=== PATIENT | male | born 1950 | race Caucasian/White ===

== ENCOUNTER 2020-11-20 08:40 | Outpatient (CLI) | payer MEDICARE, SELFPAY ==
--- NOTE | 2020-11-20 | ECG_ITS ---
Measurements Intervals [place] Rate: 55 P: 51 MT: 177 QRS: -7 QRSD: 112 T: 60 QT: 416 QTc: 400 Interpretive Statements SINUS BRADYCARDIA INCOMPLETE LEFT BUNDLE BRANCH BLOCK CANNOT RULE OUT SEPTAL INFARCT, AGE INDETERMINATE BASELINE ARTIFACT- I, II, AVR ABNORMAL ECG Electronically Signed On 11-20-2020 9:37:42 SESSIONS CLERK by Rl Kelly D.O.
--- NOTE | ~2020-11-20 | XR_ITS ---
EXAMINATION: XR chest 2V EXAM DATE: 11/20/2020 09:22 INDICATION: Left shoulder osteoarthritis. Preoperative. TECHNIQUE: Frontal and lateral projections of the chest obtained and reviewed. There is no prior landon dy for comparison. FINDINGS: The lungs are clear. There are no pleural effusions. The cardiomediastinal silhouette is within normal limits. There is no pneumothorax suspected. Patient has diffuse idiopathic skeletal hyperostosis (DISH). There is severe left glenohumeral, moderate to severe right shoulder primary osteoarthritis. IMPRESSION: No acute cardiopulmonary findings. Reviewed, dictated and finalized at location B. STERED PHYSICAL THERAPIST
--- NOTE | ~2020-11-20 | CT_ITS ---
EXAMINATION: CT shoulder LT wo con DATE: 11/20/2020 09:14 INDICATION: Primary osteoarthritis, left shoulder. TECHNIQUE: Computed tomography (CT) of the left shoulder was performed without intravenous contrast. Automated exposure control and iterative reconstruction technique were employed. The dose-length prod uct was 552.95 mGy-cm. COMPARISON: Left shoulder radiographs 10/27/2020 FINDINGS: Bone alignment is normal. No fracture. There is advanced osteoarthritis of glenohumeral kay nt including bone volume loss of glenoid. There is severe osteoarthritis of acromioclavicular joint. There is a moderate-sized glenohumeral joint effusion with loose bodies. There is mild fatty atrophy of supraspinatus muscle belly. IMPRESSION: 1. Advanced osteoarthritis of glenohumeral joint including bone volume loss of glenoid. 2. Moderate-sized glenohumeral joint effusion with loose bodies. 3. Severe acromioclavicular joint osteoarthritis. Reviewed, dictated and finalized at location A. WORKING CRAFTSMAN
== END 2020-11-20 08:41 | disposition home or self-care (01) ==
PROVIDERS: PCP Pediatrics; Visit Provider Orthopaedic Surgery
DX: M19.012 Primary osteoarthritis, left shoulder (principal); M19.011 Primary osteoarthritis, right shoulder; I44.7 Left bundle-branch block, unspecified
CPT/HCPCS: 71046; 73200; 93005

== ENCOUNTER 2021-01-05 13:54 | Outpatient (CLI) | payer MEDICARE, SELFPAY ==
[2021-01-05 15:00] LABS: Basophils Percent Auto 0.5 % (0.2-1.2); Eosinophils Absolute Auto 0.1 K/mm3 (0-0.3); Eosinophils Percent Auto 1.1 % (0-4.4); Immature Granulocyte Absolute 0.02 K/mm3 (0.00-0.031); Immature Granulocyte Percent A 0.3 % (0-0.5); Lymphocytes Absolute Auto 2.75 K/mm3 (0.9-3.2); Lymphocytes Percent Auto 34.6 % (18.3-44.2); Mean Corpuscular HGB Conc 32.5 g/dl (32-36); Mean Corpuscular Hemoglobin 29.7 pg (26-34); Mean Corpuscular Volume 91.3 fl (80-100); Mean Platelet Volume 10.8 fl (7.4-10.4); Monocytes Absolute Auto 0.5 K/mm3 (0.1-0.6); Monocytes Percent Auto 5.7 % (2.6-8.5); Neutrophils Absolute Auto 4.6 K/mm3 (1.3-6.7); Neutrophils Percent Auto 57.8 % (45.5-73.1); Platelet Count Result 237 k/mm3 (150-375); Red Blood Count 4.38 M/mm3 (4.6-6.20); Red Cell Distribution Width 13.2 % (11.5-14.5); White Blood Count 7.9 K/mm3 (4.5-10.0)
[2021-01-05 15:13] LABS: Anion Gap 11 mmol/L (8-16); Blood Urea Nitrogen 25 mg/dL (9-20); Calcium 9.9 mg/dL (8.4-10.2); Carbon Dioxide 28 mmol/L (22-30); Chloride 103 mmol/L (98-107); Estimated Glomerular Filt Rate 55; Glucose 144 mg/dL (75-110); Potassium 4.8 mmol/L (3.4-5.0); Sodium 142 mmol/L (137-145)
== END 2021-01-05 13:55 | disposition home or self-care (01) ==
PROVIDERS: Anesthesiology; PCP Pediatrics; Visit Provider Orthopaedic Surgery
DX: Z01.818 Encounter for other preprocedural examination (principal); M25.512 Pain in left shoulder; E11.9 Type 2 diabetes mellitus without complications
CPT/HCPCS: 36415; 80048; 85025; 86850; 86900; 86901; 87081

== ENCOUNTER → 2021-01-10 00:35 | Outpatient (CLI) | payer MEDICARE, SELFPAY ==
[2021-01-10 19:48] LABS: SARS-CoV-2 RNA PCR Negative
== END ==
PROVIDERS: PCP Pediatrics; Visit Provider Orthopaedic Surgery
DX: Z01.812 Encounter for preprocedural laboratory examination (principal); Z20.822 Contact with and (suspected) exposure to COVID-19
CPT/HCPCS: C9803; U0003; U0005

== ENCOUNTER 2021-01-14 14:30 | Observation (INO) | payer MEDICARE, SELFPAY ==
[2021-01-05 14:15] VITALS: BP 140/76; PULSE 64; RESP 20; TEMP 37; O2SAT 100; BMI 30.9
[2021-01-13] VITALS (12 sets, daily range): BP systolic 98–126; BP diastolic 54–79; PULSE 57–72; RESP 12–18; TEMP 35.9–36.7; O2SAT 96–100; BMI 30.2
--- NOTE | 2021-01-13 07:02 | P.PNAN_ITS ---
Anes - Initial Pre Proc Eval Procedure: Operation Date: 01/13/21 08:30 Proposed Procedures p Left Reverse Total Shoulder Arthroplasty - Myron Hernandez MD Date/Time: 01/13/21 07:02 Surgeon: Myron Hernandez MD Pre Op Diagnosis: primary OA left shoulder Patient Data Age: 70 Gender: M Height: 1.8 m Weight: 98.2 kg Last Vital Signs Temp 36.4 C L 01/13/21 06:44 Pulse 57 L 01/13/21 06:44 Resp 18 01/13/21 06:44 BP 125/79 01/13/21 06:44 Pulse Ox 100 01/13/21 06:44 Allergies Allergy/AdvReac Type Severity Reaction Status Date / Time No Known Allergies Allergy Verified 01/13/21 06:35 Home Medications Medication Instructions Recorded Confirmed Type atenolol 50 mg tablet 50 mg PO QAM 09/25/20 01/13/21 History atorvastatin 40 mg tablet 40 mg PO QAM 09/25/20 01/13/21 History metformin 1,000 mg tablet,extended 1,000 mg PO BID 09/25/20 01/13/21 History release 24hr omega 1-hse-ykv-fish oil [Fish Oil] 1 cap PO DAILY 01/05/21 01/13/21 History ECG: Date of Service: 11/20/20 Procedure(s): CA 12 lead EKG Accession Number(s): [id number] cc: ~ Measurements Intervals [place] Rate: 55 P: 51 OK: 177 QRS: -7 QRSD: 112 T: 60 QT: 416 QTc: 400 Interpretive Statements SINUS BRADYCARDIA INCOMPLETE LEFT BUNDLE BRANCH BLOCK CANNOT RULE OUT SEPTAL INFARCT, AGE INDETERMINATE BASELINE ARTIFACT- I, II, AVR ABNORMAL ECG Electronically Signed On 11-20-2020 9:37:42 ASSOCIATE SOFTWARE DEVELOPMENT ENGINEER by Rl Kelly D.O. Dictated By: Rl Kelly DO 11/20/20 0930 Patient hx anesthesia problems: none Family hx anesthesia problems: none PMFSH Past Medical History Medical History (Updated 01/13/21 @ 07:03 by Jeremi Thao MD) Diabetes Hypercholesterolemia Hypertension Obesity Surgical History Surgical History H/O left nephrectomy History of left knee replacement History of right knee joint replacement Social History Social History Smoking status: Never smoker Second hand tobacco smoke exposure: No Alcohol intake: never Substance use: never Substance use type: does not use Living arrangements: with family Spiritual care concerns: No Anes - Eval Final PreProcedure Day of Procedure 01/13/21 07:02 Patient weight: obese Heart: regular rate and rhythm Lungs: clear to auscultation and normal air movement Airway: Mallampati scale class II Neurological: alert and oriented Last oral intake: >/= 8 hours ASA classification: III Emergent: no Anesthetic plan: proceed Anesthesia type and monitoring: general LMA and ETT Informed Consent: The patient's anesthetic plan and its attendant risks and benefits were discussed with the patient/family/POA. Questions were solicited and answers provided to the satisfaction of the patient/family/POA.
--- NOTE | 2021-01-13 07:06 | WPDANESPNB ---
Anes - Peripheral Nerve Block Date/Time: 01/13/21 07:06 I have discussed with the patient/family/POA the placement of a peripheral nerve block for post-operative pain management, including associated risks, benefits, complications, and side effects. Alternative methods of post-operative analgesia were detailed. Questions were solicited and answers provided to the satisfaction of the patient/family/POA. Time-Out: A pre-procedural Time-Out was completed immediately before starting the procedure and confirmed: Patient Identification, Site, Procedure, Patient Position and the Availability of Requisite Equipment. Clinical Indications: Acute post-operative pain management requested by the operative surgeon. Nerve Block Insertion Note Anes-nerve block: supraclavicular left Patient position: supine Skin prep: chlorhexidine Needle: 22 gauge, stimulating, insulated echogenic needle. Needle length: 80 mm Technique: ultrasound (in plane) Injectate: bupivacaine 0.5% with epi 5 mcg/ml (20cc) Observations: tolerated well Complications: none Procedure start time:: 815 Procedure end time:: 820
--- NOTE | 2021-01-13 07:23 | WPDHPUPDATE1 ---
History and Physical Update Update Date/Time: 01/13/21 07:23 History and Physical has been reviewed, including an updated exam of the patient. There are NO changes in the patient's condition. Risks, benefits, and alternatives have been discussed and questions answered. Patient agrees to proceed with procedure.
[2021-01-13] MEDS: TRANEXAMIC ACID 1,000MG/ISO100 1,000 MG/100 ML BAG 200 MG IVPB (07:33)
[2021-01-13] MEDS: ACETAMINOPHEN 500 MG TABLET 1000 MG PO (07:33)
[2021-01-13] MEDS: LACTATED RINGERS 1,000 ML 30 ML IV CONT ×2 (07:33→11:16)
[2021-01-13 07:42] LABS: Glucose Point of Care 104 (65-105)
--- NOTE | 2021-01-13 08:03 | SUR.PREOP ---
0715; DR PRUITT HERE SPEAKING TO PT AND SPOUSE. ASKED HIM IF PT CAN LEAVE SPLINT ON LT [address]TH [address] DR PRUITT STATES YES
[2021-01-13] MEDS: ceFAZolin 2 GM/D5W 50 ML 2 GM/50 ML BAG IVPB (08:24)
--- NOTE | 2021-01-13 10:58 | PM.PROC ---
Procedure Note - Detailed Date of procedure: 01/13/21 Pre-op diagnosis: primary OA left shoulder Post-op diagnosis: same Procedure performed: Reverse total shoulder arthroplasty. Biceps tenodesis. Description of procedure: Severely contracted and stiff shoulder, in large part due to extensive osteophytes, both on the glenoid and humerus. These were removed. Bone quality was excellent. Posterior capsule release was required. Reaming of the inferior and anterior inferior aspect of the glenoid primarily according to preoperative templating. Excellent range of motion and stability with the 10 degree lateral offset 42 mm glenoid sphere. Reduction was tight and the humerus was thus placed at the 6 o'clock position to facilitate reduction. Humerus placed at 10? retroversion. Implants: Tornier Aequalis reversed II glenoid base plate 29mm, reversed insert 6mm thickness; Aequalis Ascend Flex humeral stem size 4B. Aequalis Reversed II glenoid sphere 42 diameter; Reversed tray low offset. Anesthesia: GETA and regional Surgeon: Myron Hernandez MD Cane Loader: Zuleika Casillas PA-C Estimated blood loss (mL): 200 Drains: No Complications: None Condition: stable Disposition: PACU Findings: Physician business support assistant, Zuleika Casillas PA-C, required for surgery; including patient positioning, draping, arthroscopic camera operation, maintaining instrument position, wound closure, and dressing and sling placement. OPERATIVE DETAILS: The patient was given an interscalene block in the preoperative area. Preoperative antibiotics were given. The patient was transferred to the operating room and a general anesthetic was administered. The beach chair position was used at 45 degrees. All bony prominences were padded. The head was carefully stabilized on the McConnel head kiln operator. A sterile prep and drape was performed in the usual manner with ChloraPrep. A longitudinal incision was created at the anterior shoulder just lateral to the deltopectoral interval. Careful dissection was performed to expose the interval and protect the cephalic vein. The vein was retracted medially. The upper border of the pectoralis was released. Anterior circumflex vessel branches were suture ligated. The biceps was tenotomized and later tenodesed. A subscapularis tenotomy was performed. The inferior capsule was released, exposing the humeral head. Osteophytes were removed. Care was taken to stay on bone to protect the axillary nerve. The anatomic head cut was taken with the oscillating saw. Sounding and broaching was performed. The neck anteversion and inclination were carefully assessed. The cut protector was placed, and attention was turned to the glenoid. Retractors were placed. Releases were carried out for exposure. The subscapularis was mobilized, the inferior capsule and long head of triceps released, and the superior and middle glenohumeral ligaments released as well. Labral tissue was resected as needed. The sizing template was used to assess the baseplate position low on the glenoid. A guide pin was placed. Minimal reaming was used to accomplish a flat surface without violating the subchondral bone. Version was corrected according to preoperative templating. The central post hole was drilled. The real component was impacted into position. Supplemental locking screws were placed superiorly and inferiorly. The glenosphere was impacted into the taper, and secured with the locking screw. The humeral components were trialed. The real humeral stem and tray, and insert were impacted into position. The shoulder was copiously irrigated periodically with pulsatile lavage. The shoulder was reduced and stability confirmed. The biceps tenodesis was incorporated with the pectoralis tendon repair. The deltopectoral space was reapproximated with number 2 Vicryl. The remained tissue was closed with 0 Quill and 2-0 Quill running suture and steri-strips. A sterile dressing and shoulder immobilizer was placed. The patient was tra
[2021-01-13 11:40] LABS: Glucose Point of Care 138 (65-105)
--- NOTE | 2021-01-13 13:00 | ADMGEN ---
This patient, Prince Garcia, was admitted to Medical Room 240-01. Patient/family oriented to hospital policies and general routines including ID bracelet, bed and alarms, visiting hours, pain management, procedures, bathroom and other care routines, personal items, smoking policy, room service/diet, and visiting hours. Information on how to activate the Rapid Response Team has been discussed. Patient/Family are encouraged to report perceived risks to care and to ask questions if they do not understand what they are told or what they should do.
[2021-01-13 13:51] LABS: Glucose Point of Care 134 (65-105)
[2021-01-13] MEDS: KETOROLAC 15 MG/ML VIAL (*BKC) IV PUSH ×3 (14:43→23:57)
[2021-01-13 16:10] LABS: Glucose Point of Care 222 (65-105)
[2021-01-13] MEDS: DOCUSATE SODIUM 100 MG CAPSULE PO (16:13)
[2021-01-13] MEDS: metFORMIN HCL 500 MG TABLET 1000 MG PO (16:13)
[2021-01-13] MEDS: ASPIRIN 81 MG ENTERIC TABLET PO (16:13)
[2021-01-13 21:02] LABS: Glucose Point of Care 172 (65-105)
[2021-01-14] VITALS (9 sets, daily range): BP systolic 96–124; BP diastolic 53–66; PULSE 53–88; RESP 12–18; TEMP 36–36.8; O2SAT 95–100
--- NOTE | ~2021-01-14 | XR_ITS ---
EXAMINATION: XR shoulder LT min 2V DATE: 01/13/2021 11:36 INDICATION: Left shoulder arthroplasty. Postop. TECHNIQUE: 2 views of left shoulder were obtained. COMPARISON: Left shoulder radiographs 10/27/2020 FINDINGS: There is a reverse cxjj-jmg-lycpje total left shoulder arthroplasty in near-anatomic alignm ent. No fracture. There is moderate osteoarthritis of glenohumeral joint. There is gas in the soft ti ssues, consistent with recent surgery. IMPRESSION: 1. Total left shoulder arthroplasty in near-anatomic alignment. Reviewed, dictated and finalized at location A. OVISUAL EQUIPMENT OPERATOR
[2021-01-14] MEDS: KETOROLAC 15 MG/ML VIAL (*BKC) IV PUSH ×2 (05:10→11:35)
[2021-01-14 07:34] LABS: Glucose Point of Care 118 (65-105)
--- NOTE | 2021-01-14 07:58 | WPDANESPN ---
Anes - Prog Note Post-Op Date/Time: 01/14/21 07:58 Cardiovascular status: normal Respiratory status: normal Airway patency: baseline Mental status: baseline Post-Op hydration status: normal Vital Signs: Last Vital Signs Temp 36.7 C 01/14/21 04:29 Pulse 88 01/14/21 04:29 Resp 16 01/14/21 04:29 BP 96/55 L 01/14/21 04:29 Pulse Ox 97 01/14/21 04:29 Pain Score (VAS): 0/10 I/O: Intake & Output 01/13/21 01/13/21 01/14/21 15:59 23:59 07:59 Intake Total 650 1140 450 Output Total 900 820 Balance 650 240 -370 01/13/21 01/13/21 01/13/21 11:34 13:49 16:07 POC Capillary Glucose 138 H 134 H 222 H 01/13/21 01/14/21 20:58 07:31 POC Capillary Glucose 172 H 118 H Post-procedural complaints: none Patient Feedback: Patient satisfied with anesthetic care. Other Findings: Pt with excellent Pain relief from nerve block
[2021-01-14] MEDS: metFORMIN HCL 500 MG TABLET 1000 MG PO ×2 (08:07→16:18)
[2021-01-14] MEDS: DOCUSATE SODIUM 100 MG CAPSULE PO ×2 (08:07→16:18)
[2021-01-14] MEDS: ASPIRIN 81 MG ENTERIC TABLET PO ×2 (08:07→16:18)
[2021-01-14] MEDS: atenoloL 50 MG TABLET PO (08:08)
[2021-01-14] MEDS: ATORVASTATIN 40 MG TABLET PO (08:11)
[2021-01-14 11:59] LABS: Glucose Point of Care 127 (65-105)
[2021-01-14] MEDS: TAMSULOSIN HCL 0.4 MG CAPSULE PO (15:22)
--- NOTE | 2021-01-14 15:28 | PC.NURSE ---
On 01/14/21, the student, [Elizabeth Hicks ], provided care and completed [facility] documentation on this patient. I have reviewed the student's documentation and agree with the findings.
--- NOTE | 2021-01-14 16:54 | PM.PNORT ---
Progress Note: A&P Assessment and Plan (1) Status post reverse total arthroplasty of left shoulder: Code(s): Z96.612 - Presence of left artificial shoulder joint Status: Acute Assessment and Plan: Postoperative day 1: Left reverse total shoulder arthroplasty. Patient progressing well. Pain controlled with pain medication. Patient working well with physical therapy. No numbness or tingling in his fingers. Patient will need to have urinated on his own prior to discharge home. Subjective Subjective Date/Time Seen: 01/14/21 09:00 Postoperative day 1: Reverse total shoulder arthroplasty. Physical therapy with patient at the time my visit. Patient was resting comfortably in bed. No pain in the shoulder. Patient denied chest pain, shortness of breath, abdominal pain. Patient states he has not been able to urinate since surgery. He had been cathed twice. No numbness or tingling in his fingers. Review of Systems Review of Systems: All systems reviewed & are unremarkable except as noted in HPI and below Exam Narrative: Exam Narrative: Normal weight 70-year-old male. No acute distress. Alert and oriented x3. Dressing dry and intact with no drainage. Moderate swelling and ecchymosis at biceps. Light touch sensation intact. Distal pulses palpable. Objective Data Vital Signs Vital Signs: Vital Signs - 24 hr 01/13/21 18:13 01/13/21 19:44 01/14/21 01:52 Temperature 96.9 F L 97.7 F 97.8 F Pulse Rate 58 L 57 L 57 L Respiratory Rate 16 16 14 Blood Pressure 98/57 L 98/54 L 98/58 L Pulse Oximetry 100 98 97 01/14/21 04:29 01/14/21 08:00 01/14/21 08:08 Temperature 98.1 F 96.8 F L Pulse Rate 88 53 L 53 L Respiratory Rate 16 12 Blood Pressure 96/55 L 98/53 L Pulse Oximetry 97 100 01/14/21 09:28 01/14/21 10:00 01/14/21 14:00 Temperature 97.4 F L 97.6 F Pulse Rate 54 L 69 Respiratory Rate 12 16 Blood Pressure 97/58 L 115/61 Pulse Oximetry 95 99 100 Intake/Output Intake/Output: Intake & Output 01/11/21 01/12/21 01/13/21 01/14/21 23:59 23:59 23:59 23:59 Intake Total 1790 980 Output Total 900 1270 Balance 890 -290 Meds/Results Medications: Active Medications Generic Name Dose Route Start Last Admin Trade Name Freq PRN Reason Stop Dose Admin Aspirin 81 mg 01/13/21 17:00 01/14/21 16:18 Aspirin 81 Mg Enteric Tablet PO 81 mg BID [facility] Administration Atenolol 50 mg 01/14/21 09:00 01/14/21 08:08 A[facility]ol 50 Mg [facility] Atorvastatin Calcium 40 mg 01/14/21 09:00 01/14/21 08:11 Atorvastatin 40 Mg Tablet [facility] [place] Cyclobenzaprine HCl 10 mg 01/13/21 12:28 Cyclobenzaprine Hcl 10 Mg Tablet PO Q8H PRN Muscle Spasm Docusate Sodium 100 mg 01/13/21 17:00 01/14/21 16:18 Docusate Sodium 100 Mg Capsule PO 100 mg BID [facility] Administration Magnesium Hydroxide 30 ml 01/13/21 12:28 Magnesium Hydroxide Susp 30 Ml Udc PO BID PRN Constipation Metformin HCl 1,000 mg 01/13/21 17:00 01/14/21 16:18 Metformin Hcl 500 Mg Tablet PO 1,000 mg BIDWM [facility] Administration Ondansetron HCl 4 mg 01/13/21 12:28 Ondansetron Inj 4 Mg/2 Ml Vial IV PUSH Q4H PRN Nausea And Vomiting Oxycodone HCl 5 mg 01/13/21 12:28 Oxycodone Hcl (*Crx) 5 Mg Tab Ir PO Q4H PRN Pain Rated 4-6 Oxycodone HCl 10 mg 01/13/21 12:28 Oxycodone Hcl (*Crx) 5 Mg Tab Ir PO Q4H PRN Pain Rated 7-10 Tamsulosin HCl 0.4 mg 01/15/21 09:00 Tamsulosin Hcl 0.4 Mg [facility]apsule [facility] [place] Results: ITS Impressions Shoulder X-Ray 01/13/21 12:00 IMPRESSION: 1. Total left shoulder arthroplasty in near-anatomic alignment. Labs Labs: Laboratory Results - last 24 hr 01/13/21 01/14/21 01/14/21 20:58 07:31 11:34 POC Capillary Glucose 172 H 118 H 127 H
[2021-01-15 00:06] VITALS: BP 114/70; PULSE 73; RESP 18; TEMP 36.7; O2SAT 100
[2021-01-15 04:47] VITALS: BP 130/65; PULSE 77; RESP 18; TEMP 36.4; O2SAT 97
[2021-01-15 08:00] VITALS: BP 152/68; PULSE 74; RESP 18; TEMP 36.6; O2SAT 94
[2021-01-15] MEDS: metFORMIN HCL 500 MG TABLET 1000 MG PO (08:01)
[2021-01-15] MEDS: TAMSULOSIN HCL 0.4 MG CAPSULE PO (08:01)
[2021-01-15] MEDS: ASPIRIN 81 MG ENTERIC TABLET PO (08:01)
[2021-01-15] MEDS: ATORVASTATIN 40 MG TABLET PO (08:01)
[2021-01-15 08:02] VITALS: PULSE 77
[2021-01-15] MEDS: atenoloL 50 MG TABLET PO (08:02)
[2021-01-15 08:18] LABS: Glucose Point of Care 123 (65-105)
[2021-01-15 12:00] VITALS: BP 134/66; PULSE 76; RESP 18; TEMP 36.6; O2SAT 99
[2021-01-15 12:03] LABS: Glucose Point of Care 114 (65-105)
--- NOTE | 2021-01-15 16:00 | PM.DS ---
DS: Admitting Diagnosis Admitting Diagnosis Admitting Diagnosis: OA Left glenohumeral joint DS: Discharge Diagnosis Discharge Diagnosis (1) Status post reverse total arthroplasty of left shoulder: Code(s): Z96.612 - Presence of left artificial shoulder joint Status: Acute Assessment and Plan: Postoperative day 2: Left reverse total shoulder arthroplasty. Patient progressing well. Pain controlled with pain medication. Patient working well with physical therapy. No numbness or tingling in his fingers. Follow up appointments already made. Patient did have trouble urinating post operatively. He was straight catheterized twice and had a Byrd catheter in over night. Prior to discharge patient was able to urinate on his own. I recommend he take flowmax and follow up with urology in 1 week. DS: Summary Hospital Course Reason for hospitalization: Total knee arthroplasty Hospital Course: Patient tolerated procedure well. Has had initial PT/OT. Patient did have trouble urinating and was cathed multiple times. Prior to discharge pateint was able to void on his own. Status at Discharge Functional status at discharge: uses cane/walker Overall status at discharge: patient is progressing back to baseline Time Spent with Patient Time attestation: Total time spent providing and/or coordinating discharge services: Exam Narrative: Exam Narrative: Normal weight Male. Resting comfortably in bed. Wearing sling. Wearing compression socks bilaterally. Dressing dry and intact with no drainage. Moderate swelling. Moderate ecchymosis. No erythema. No hematoma. Range of motion limited due to pain. Calf nontender. Neurologic status intact. No varicosities. Distal pulses palpable. DS: Data Data Completed and Pending Labs on day of discharge: Labs from last 24 hours 01/15/21 01/15/21 11:49 07:52 POC Capillary Glucose 114 H 123 H Discharge Plan Discharge Attending physician on discharge: Myron Hernandez Discharging Clinician: Zuleika Casillas Patient Disposition: Home, Self-Care Activity: may shower and other - see discharge instructions Diet: regular Wound Care Instructions: follow printed instructions Discharge Instructions: Follow up with Urology in 1 week phone number: [phone] See instruction sheet: Dressing off in 7 days post op. Steri strips off at 14 days post op. No soaking in water. Showering okay. Wear sling, no driving until follow up visit. Patient Instructions: Cefazolin (By injection), Urinary Retention in Men (GEN), Pain Management (DC), Weakness (DC), Joint Replacement Surgery (DC), Shoulder Arthroplasty (GEN) Follow-up/Referrals: Zuleika Casillas PA [Physician Button Sewer] - Discharge Medications: New aspirin 81 mg tablet,delayed release (DR/EC) 81 mg PO BID 14 Days Qty: 28 RF: 0 oxycodone-acetaminophen 5-325 mg tablet 1 - 2 tablet PO Q4-6H MDD 6 PRN (Reason: pain) Qty: 30 RF: 0 ondansetron HCl [Zofran] 4 mg tablet 4 mg PO Q8H Qty: 20 RF: 0 tamsulosin 0.4 mg capsule 0.4 mg PO QAM 14 Days Qty: 14 RF: 0 Continued atorvastatin 40 mg tablet 40 mg PO QAM RF: 0 atenolol 50 mg tablet 50 mg PO QAM RF: 0 omega 5-nce-lcy-fish oil [Fish Oil] 1,000 mg (120 mg-180 mg) Capsule 1 cap PO DAILY RF: 0 metformin 1,000 mg tablet 1,000 mg PO BID RF: 0 Date of admission: 01/14/21 14:30 Primary Care Provider: Lorie,Remy Wright Admitting Provider: Myron Hernandez Attending physician on admission: Myron Hernandez Condition: Stable
== END 2021-01-15 16:53 | disposition home or self-care (01) ==
LOC: ANHSURGERY 14:33 → ANH2MED 14:33
PROVIDERS: Admitting Provider Orthopaedic Surgery; PCP Pediatrics; Visit Provider Orthopaedic Surgery
PROC: (CPT 23472; principal; 2021-01-13 08:30)
DX: M19.012 Primary osteoarthritis, left shoulder (principal); M25.712 Osteophyte, left shoulder; M62.412 Contracture of muscle, left shoulder; G89.18 Other acute postprocedural pain; E11.9 Type 2 diabetes mellitus without complications; I10 Essential (primary) hypertension; E78.00 Pure hypercholesterolemia, unspecified; R39.198 Other difficulties with micturition; Z96.653 Presence of artificial knee joint, bilateral
CPT/HCPCS: 23472; 64415; 73030; 82948; 97110; 97116; 97161; 97165; 97530; 97535; A4565; A9270; C1776; G0378; J0131; J0171; J0330; J0690; J1100; J1885; J2250; J2270; J2405; J2704; J2710; J2795; J3010; J7120

== ENCOUNTER 2021-08-03 12:28 | Outpatient (CLI) | payer MEDICARE, SELFPAY ==
--- NOTE | ~2021-08-03 | CT_ITS ---
EXAMINATION: CT shoulder RT wo con DATE: 08/03/2021 13:11 INDICATION: Primary osteoarthritis of the right shoulder TECHNIQUE: High resolution computed tomography (CT) of the right shoulder was performed without intra venous contrast. Additional sagittal and coronal reconstructions were performed. Automated exposure c ontrol and iterative reconstruction technique were employed. The dose-length product was 584.80 mGy-c m. COMPARISON: None FINDINGS: Severe osteoarthritis at the right glenohumeral joint. There is remodeling of the glenoid with loss o f posterior bone stock resulting in approximately 13 degree acetabular retroversion. There is also mi ld remodeling along the humeral head along with formation of a large inferior humeral osteophyte. Sca ttered mild subarticular cystic changes along the humeral head as well as along the glenoid with ante rior predominance where there are also small anterior glenoid marginal osteophytes. Severe acromiocla vicular osteoarthritis also with hypertrophic osteophytes and subarticular cystic changes. No fractur e. Small heterotopic ossicle at the distal aspect of the supraspinatus tendon. Small glenohumeral joint effusion with large amount of fluid in the subacromial/subdeltoid bursa which could be due to either possible full-thickness rotator cuff tear/perforation or subacromial/subdeltoid bursitis. There are s everal loose osteochondral bodies along the long head biceps tendon sheath. There appears to be heter otopic ossification at the long head biceps tendon at the cephalad aspect of the intertubercular groo ve where there is suggestion of an anchor site for a possible biceps tenodesis. Correlate with surgic al history. There appears to be some atrophy with concave peripheral margins of the supraspinatus and infraspinatus tendons with relatively symmetric fatty atrophy compared with the subscapularis muscle . There is respiratory motion throughout the right lung limiting assessment of fine pulmonary parench ymal detail. No evident pneumonia, pulmonary edema, pleural effusion or pneumothorax. IMPRESSION: 1. Severe right glenohumeral and acromio clavicular osteoarthritis. 2. Moderate amount of fluid in the subacromial/subdeltoid bursa which could be due to either bursitis or medication with the glenohumeral joint space by a full-thickness rotator cuff tear/perforation. 3. Suggestion of possible bicipital tenodesis. 4. Mild supraspinatus and infraspinatus muscular atrophy. Reviewed, dictated and finalized at location A. IMPRESSION: 1. Severe right glenohumeral and acromio clavicular osteoarthritis. 2. Moderate amount of fluid in the subacromial/subdeltoid bursa which could be due to either bursitis or medication with the glenohumeral joint space by a ful l-thickness rotator cuff tear/perforation. 3. Suggestion of possible bicipital tenodesis. 4. Mild supraspinatus and infraspinatus muscular atrophy.
== END 2021-08-03 12:29 | disposition home or self-care (01) ==
LOC: ANHIMG 12:35
PROVIDERS: PCP Pediatrics; Visit Provider Orthopaedic Surgery
DX: M19.011 Primary osteoarthritis, right shoulder (principal)
CPT/HCPCS: 73200

== ENCOUNTER 2021-10-08 12:01 | Outpatient (CLI) | payer MEDICARE, SELFPAY ==
[2021-10-08 12:51] LABS: Basophils Absolute Auto 0.1 K/mm3 (0.0-0.1); Basophils Percent Auto 0.7 % (0.2-1.2); Eosinophils Absolute Auto 0.1 K/mm3 (0-0.3); Hematocrit 38.5 % (42.0-52.0); Hemoglobin 12.2 g/dL (14.0-18.0); Immature Granulocyte Absolute 0.03 K/mm3 (0.00-0.031); Immature Granulocyte Percent A 0.4 % (0-0.5); Lymphocytes Percent Auto 36.5 % (18.3-44.2); Mean Corpuscular HGB Conc 31.7 g/dl (32-36); Mean Corpuscular Hemoglobin 30.3 pg (26-34); Mean Corpuscular Volume 95.5 fl (80-100); Mean Platelet Volume 10.7 fl (7.4-10.4); Monocytes Absolute Auto 0.6 K/mm3 (0.1-0.6); Monocytes Percent Auto 8.2 % (2.6-8.5); Neutrophils Absolute Auto 3.6 K/mm3 (1.3-6.7); Neutrophils Percent Auto 53.2 % (45.5-73.1); Platelet Count Result 189 k/mm3 (150-375); Red Blood Count 4.03 M/mm3 (4.6-6.20); Red Cell Distribution Width 13.7 % (11.5-14.5); White Blood Count 6.9 K/mm3 (4.5-10.0)
[2021-10-08 13:06] LABS: Anion Gap 9 mmol/L (8-16); Blood Urea Nitrogen 25 mg/dL (9-20); Calcium 9.7 mg/dL (8.4-10.2); Carbon Dioxide 26 mmol/L (22-30); Chloride 101 mmol/L (98-107); Estimated Glomerular Filt Rate 55; Glucose 120 mg/dL (65-110); Potassium 4.9 mmol/L (3.4-5.0); Sodium 136 mmol/L (137-145)
== END 2021-10-08 12:02 | disposition home or self-care (01) ==
PROVIDERS: Anesthesiology; PCP Pediatrics; Visit Provider Orthopaedic Surgery
DX: M19.011 Primary osteoarthritis, right shoulder (principal); E11.9 Type 2 diabetes mellitus without complications; Z01.818 Encounter for other preprocedural examination
CPT/HCPCS: 36415; 80048; 85025; 87081

== ENCOUNTER 2021-11-05 00:35 | Day surgery (SDC) | payer MEDICARE, SELFPAY ==
--- NOTE | 2021-10-08 12:00 | PC.NURSE ---
Report to the Outpatient Waiting Room, entrance under the green pavilion located off [facility], at time _0600_ on date _11/05/21_. OR Time: _0730 AM_. - You and your visitor will be asked a series of questions to screen for COVID 19 for your protection. - A mask is required within the hospital. - Only one visitor is allowed at this time. Patient visitors will be guided where to wait when not with patient. Preoperative COVID Testing Requirements: No COVID Test needed if: (proof is required; if not received patient will have Rapid Test prior to entry) - Patient has received COVID Vaccine at least 14 days prior to procedure date or - Patient has positive COVID test result within last 90 days of surgery date. COVID Test needed if above criteria is not met If not COVID vaccinated a COVID test must be conducted within 72 hours of surgery and patient is asked to isolate self from time of testing until procedure. You will go to the [facility] for your COVID testing. The [facility] site is located at the corner of [address] [facility]. You will only be called if COVID results are positive and your surgeon may reschedule your elective surgery date. Patients may have clear liquids (water, carbonated beverages, clear teas, apple juice) until 3 hours prior to surgery (0430 AM) with a maximum of 20 ounces. - No food from midnight until time of surgery - Infants may have breast milk until 4 hours before surgery, infant formula 6 hours prior to surgery. - Children will be allowed to drink immediately following surgery. If applicable, please bring a bottle or sippy cup to assist with drinking. Juice, water, soda, and popsicles are readily available. For infants on formula, please bring formula the day of surgery. Pacifiers are allowed. Take the following medications with a SIP of water the morning of surgery: __ATENOLOL___ Medications to discontinue per physician ____N/A Date to take last dose Please no make-up, nail bulgarian, hairspray, perfume, deodorant, or body powder the day of surgery. No jewelry (including any body piercings) or valuables the day of surgery, leave them at home. Please take a shower or bath the night before, or the morning of, surgery with an antibacterial soap. Wear comfortable, loose fitting clothing. Children are encouraged to wear pajamas. - Jewelry must be removed prior to entering the operating room. Rings and piercings that are not removed may be cut off. - The hospital will not accept responsibility for valuables. - Please leave all valuables, including medications, at home the day of surgery. If you are going home after surgery, a licensed ups driver must drive you home. - NO public transportation without another adult. - We recommend that an adult stay with you for 24 hours following discharge. - We also recommend that you do not drive, make important decision, drink alcoholic beverages, or take any drugs that were not prescribed by your health care provider for at least 24 hours after your discharge time. For Pediatric surgeries, we recommend two adults accompany the child home (only one inside the building at this time). Follow any additional instructions given to you from your surgeon. Telephone instructions given to __PT____and asked if any additional questions and then verbalized understanding. Patient advised to call surgeon office or pre surgery nurse liaison [phone] if any additional questions.
[2021-10-08 12:23] VITALS: BP 114/78; PULSE 60; RESP 20; TEMP 36.6; O2SAT 100; BMI 33.5
--- NOTE | 2021-11-04 13:38 | P.PNAN_ITS ---
Anes - Initial Pre Proc Eval Procedure: Operation Date: 11/05/21 07:30 Proposed Procedures p Right Reverse Total Shoulder Arthroplasty - Myron Hernandez MD Date/Time: 11/04/21 13:38 Surgeon: Myron Hernandez MD Pre Op Diagnosis: primary OA Right shoulder Patient Data Age: 71 Gender: M Height: 1.8 m Weight: 109 kg Last Vital Signs Temp 36.6 C 10/08/21 12:23 Pulse 60 10/08/21 12:23 Resp 20 10/08/21 12:23 BP 114/78 10/08/21 12:23 Pulse Ox 100 10/08/21 12:23 Allergies Allergy/AdvReac Type Severity Reaction Status Date / Time No Known Allergies Allergy Verified 11/05/21 06:28 Home Medications Medication Instructions Recorded Confirmed Type atenolol 50 mg tablet 50 mg PO QAM 09/25/20 11/05/21 History atorvastatin 40 mg tablet 40 mg PO QAM 09/25/20 11/05/21 History metformin 1,000 mg PO BID 01/13/21 11/05/21 History tamsulosin 0.4 mg PO QAM 14 Days #14 cap 01/15/21 11/05/21 Rx Patient hx anesthesia problems: none Family hx anesthesia problems: none Results Review: All pre-operative results and documents have been reviewed as part of the pre-operative evaluation. [facility] Past Medical History Medical History Diabetes Hypercholesterolemia Hypertension Obesity Surgical History Surgical History H/O left nephrectomy History of left knee replacement History of reverse total replacement of left shoulder joint (~01/13/21) & Biceps Tenodesis History of right knee joint replacement Social History Social History Tobacco type: cigarettes Second hand tobacco smoke exposure: No Alcohol intake: never Substance use: never Substance use type: does not use Living arrangements: with family Spiritual care concerns: No Anes - Eval Final PreProcedure Day of Procedure 11/04/21 13:38 Patient weight: obese Heart: regular rate and rhythm Lungs: clear to auscultation and normal air movement Airway: Mallampati scale class II Neurological: alert and oriented Last oral intake: >/= 8 hours ASA classification: III Emergent: no Anesthetic plan: proceed Anesthesia type and monitoring: general ETT Results Review: All pre-operative results and documents have been reviewed as part of the pre-operative evaluation. Informed Consent: The patient's anesthetic plan and its attendant risks and benefits were discussed with the patient/family/POA. Questions were solicited and answers provided to the satisfaction of the patient/family/POA.
--- NOTE | 2021-11-04 13:39 | WPDANESPNB ---
Anes - Peripheral Nerve Block Date/Time: 11/04/21 13:39 I have discussed with the patient/family/POA the placement of a peripheral nerve block for post-operative pain management, including associated risks, benefits, complications, and side effects. Alternative methods of post-operative analgesia were detailed. Questions were solicited and answers provided to the satisfaction of the patient/family/POA. Time-Out: A pre-procedural Time-Out was completed immediately before starting the procedure and confirmed: Patient Identification, Site, Procedure, Patient Position and the Availability of Requisite Equipment. Clinical Indications: Acute post-operative pain management requested by the operative surgeon. Nerve Block Insertion Note Anes-nerve block: supraclavicular right Patient position: supine Skin prep: chlorhexidine Needle: 22 gauge, stimulating, insulated echogenic needle. Needle length: 80 mm Technique: ultrasound (in plane) Injectate: bupivacaine 0.5% with epi 5 mcg/ml (20cc) Observations: tolerated well Complications: none Procedure start time:: 725 Procedure end time:: 730
[2021-11-05] VITALS (17 sets, daily range): BP systolic 94–151; BP diastolic 30–79; PULSE 44–77; RESP 14–16; TEMP 36.2–36.6; O2SAT 92–99
--- NOTE | ~2021-11-05 | XR_ITS ---
EXAMINATION: XR shoulder RT min 2V DATE: 11/05/2021 11:03 INDICATION: Reverse total right shoulder arthroplasty. Postop. TECHNIQUE: 2 views of right shoulder were obtained. COMPARISON: Right shoulder radiographs 07/20/2021 FINDINGS: There is a reverse [id number] total right shoulder arthroplasty in near-anatomic align ment. No fracture. There is severe osteoarthritis of acromioclavicular joint. There is gas in the sof t tissues, consistent with recent surgery. IMPRESSION: 1. Reverse [id number] total right shoulder arthroplasty in near-anatomic alignment. 2. Severe osteoarthritis of acromioclavicular joint. Reviewed, dictated and finalized at location B. MECHANICAL ENGINEER IMPRESSION: 1. Reverse [id number] total right shoulder arthroplasty in near-anatomic a lignment. 2. Severe osteoarthritis of acromioclavicular joint.
[2021-11-05] MEDS: ACETAMINOPHEN 500 MG TABLET 1000 MG PO (06:36)
[2021-11-05 06:50] LABS: Glucose Point of Care 116 mg/dl (65-105)
[2021-11-05] MEDS: LACTATED RINGERS 1,000 ML 30 ML IV CONT ×2 (06:50→10:50)
[2021-11-05] MEDS: TRANEXAMIC ACID 1,000MG/ISO100 1,000 MG/100 ML BAG 200 MG IVPB (07:00)
--- NOTE | 2021-11-05 07:14 | WPDHPUPDATE1 ---
History and Physical Update Update Date/Time: 11/05/21 07:14 History and Physical has been reviewed, including an updated exam of the patient. There are NO changes in the patient's condition. Risks, benefits, and alternatives have been discussed and questions answered. Patient agrees to proceed with procedure.
[2021-11-05] MEDS: ceFAZolin 2 GM/D5W 50 ML 2 GM/50 ML BAG IVPB (07:38)
[2021-11-05] MEDS: VANCOMYCIN HCL 1,000 MG VIAL 1000 MG TOPICAL (09:14)
[2021-11-05 11:14] LABS: Glucose Point of Care 173 mg/dl (65-105)
--- NOTE | 2021-11-05 11:19 | SUR.PHASEI ---
Simple mask removed at 1118.
--- NOTE | 2021-11-05 15:09 | W.PM.PROC2 ---
Procedure Note - Detailed Date of Procedure 11/05/21 Pre-op Diagnosis primary OA Right shoulder Post-op Diagnosis same Procedure Performed Reverse right total shoulder arthroplasty. Surgeon Myron Hernandez MD Harness Repairer Zuleika Robles PA-C Anesthesia general and regional Indications Severe pain with advanced degenerative changes, marked stiffness, complete loss of joint space, and rotator cuff degeneration. Description of Procedure The patient was given an interscalene block in the preoperative area. Preoperative antibiotics were given. The patient was transferred to the operating room and a general anesthetic was administered. The beach chair position was used at 35 degrees. All bony prominences were padded. The head was carefully stabilized on the [place] quality head. A sterile prep and drape was performed in the usual manner with Chloraprep. A longitudinal incision was created at the anterior shoulder just lateral to the deltopectoral interval. Careful dissection was performed to expose the interval and protect the cephalic vein. The vein was retracted medially. The upper border of the pectoralis was released. Anterior circumflex vessel branches were suture ligated. The biceps was tenodesed. A small lesser tuberosity osteotomy was performed after opening the joint capsule at the rotator interval. The inferior capsule was released, exposing the humeral head. Osteophytes were removed. Care was taken to stay on bone to protect the axillary nerve. A Fukuda was placed in the joint. The subscapularis was mobilized, the inferior capsule and long head of triceps released, and the superior and middle glenohumeral ligaments released as well. Attention was turned to the humerus again. The anatomic head cut was taken with the oscillating saw. Sounding and broaching was performed. The neck anteversion and inclination were carefully assessed. The cut protector was placed, and attention was turned to the glenoid. Retractors were placed. Releases were carried out for exposure. Labral tissue was resected. The sizing template was used and a guide pin was placed. No deformity correction was required. The reamer was placed over the guide pin taken down to create a flat surface. The central boss was reamed. The central rangel screw will screw was drilled for 20 mm. Superior and inferior locking screws were also placed at 25 mm. Peripheral reaming was performed and the real 36 mm glenosphere was impacted. Trialing was performed. Excellent balance range of motion and stability without significant impingement occurred with the +3 insert. The real humeral stem and socket were impacted into position. The shoulder was copiously irrigated periodically with pulsatile lavage. The shoulder was reduced and the subscapularis repaired with number 2 Ethibond suture. The biceps tenodesis was incorporated with the pectoralis tendon repair using 5. Ethibond suture. The deltopectoral space was reapproximated with 0 Vicryl. The remaining tissue was closed with 0 Quill and 2-0 Quill running suture and steri-strips. A sterile dressing and shoulder immobilizer was placed. The patient was transferred to the recovery room. Physician escrow assistant, Zuleika Robles PA-C, required for surgery; including patient positioning, draping, tissue retraction, maintaining instrument position, wound closure, and dressing placement. Implants Shoulder Innovations Inset Shoulder System; humeral short stem size 1 x 6mm. Offset Humeral reverse insert +0, and +3 mm polyethylene insert. Glenoid base plate with 3 locking screws. 36mm +6 glenosphere. Estimated Blood Loss -200.0 Urine Output -150.0 Drains No Packing No Pathology none sent Complications No immediate complications Condition stable Disposition same day
--- NOTE | 2021-11-05 17:41 | SUR.PHASEII ---
1729 PT MEETS ANESTHESIA & DR PRUITT DISCHARGE CRITERIA. DISCHARGE INSTRUCTIONS GIVEN TO PT & ALL QUESTIONS ANSWERED. WAITING ON RIDE HOME.
== END 2021-11-05 18:05 | disposition home or self-care (01) ==
PROVIDERS: PCP Pediatrics; Visit Provider Orthopaedic Surgery
PROC: (CPT 23472; principal; 2021-11-05 07:30)
DX: M19.011 Primary osteoarthritis, right shoulder (principal); G89.18 Other acute postprocedural pain; E11.9 Type 2 diabetes mellitus without complications; I10 Essential (primary) hypertension; E78.00 Pure hypercholesterolemia, unspecified; R20.0 Anesthesia of skin; Z90.5 Acquired absence of kidney; F17.210 Nicotine dependence, cigarettes, uncomplicated; Z79.84 Long term (current) use of oral hypoglycemic drugs; E66.9 Obesity, unspecified; Z68.33 Body mass index [BMI] 33.0-33.9, adult
CPT/HCPCS: 23472; 64415; 36415; 73030; 82948; 86850; 86900; 86901; 97161; A4565; A9270; J0171; J0690; J1885; J2250; J2270; J2795; J3010; J3370; J7120

== ENCOUNTER → 2024-06-25 13:16 | Outpatient (REF) | payer MEDICARE, SELFPAY | LOC: ANHLAB 13:16 | PROVIDERS: PCP Pediatrics; Visit Provider Plastic Surgery | DX: C44.229 Squamous cell carcinoma of skin of left ear and external auricular canal (principal) | CPT/HCPCS: 88305 ==